=== PATIENT | female | born 1995 | race Two or more races ===

== ENCOUNTER 2019-12-31 02:33 | Outpatient (CLI) | payer OTHER | END 2019-12-31 10:21 | disposition home or self-care (01) | LOC: OBS/DEL 02:33 | DX: O47.1 False labor at or after 37 completed weeks of gestation (principal) ==

== ENCOUNTER 2020-01-02 16:29 | Inpatient (IN) | payer OTHER ==
[~2020-01-02] VITALS: Ht 165.1 cm; Wt 101.2 kg
== END 2020-01-05 14:20 | disposition home or self-care (01) | DRG 807 ==
LOC: OB/GYN 16:29 → LDR 16:29 → OB/GYN 01-03 02:12
PROVIDERS: ADMIT Specialist
PROC: 10E0XZZ Delivery of Products of Conception, External Approach (ICD-10-PCS; principal; 2020-01-02)
PROC: 0KQM0ZZ Repair Perineum Muscle, Open Approach (ICD-10-PCS; 2020-01-02)
PROC: 3E033VJ Introduction of Other Hormone into Peripheral Vein, Percutaneous Approach (ICD-10-PCS; 2020-01-02)
PROC: 4A1HXFZ Monitoring of Products of Conception, Cardiac Rhythm, External Approach (ICD-10-PCS; 2020-01-02)
DX: O70.1 Second degree perineal laceration during delivery (principal); Z37.0 Single live birth; Z3A.40 40 weeks gestation of pregnancy

== ENCOUNTER 2020-08-28 08:13 | Day surgery (SDC) | payer OTHER ==
[~2020-08-28] VITALS: Ht 165.1 cm; Wt 93.0 kg
== END 2020-08-28 23:20 | disposition home or self-care (01) ==
LOC: ER 08:13 → CIR.AMB 09:26
PROVIDERS: ATTEND Specialist
DX: O02.1 Missed abortion (principal); Z20.828 Contact with and (suspected) exposure to other viral communicable diseases